=== PATIENT | female | born 1950 | race Caucasian/White ===

== ENCOUNTER 2017-02-13 10:30 | Outpatient (RCR) | payer BC | END 2017-02-27 10:33 | disposition home or self-care (01) | LOC: WSPT 10:30 | DX: M47.816 Spondylosis without myelopathy or radiculopathy, lumbar region (principal) ==

== ENCOUNTER → 2017-07-23 | Outpatient (CLI) | payer BC | LOC: MC.RAD 08:55 | DX: Z12.31 Encounter for screening mammogram for malignant neoplasm of breast (principal) ==

== ENCOUNTER → 2018-07-03 | Outpatient (CLI) | payer BC ==
[2018-07-03 15:03] LABS: PH 6 (5-8); SQUAMOUS EPITHELIAL None Seen /hpf; URINE APPEARANCE Cloudy; URINE BACTERIA Rare /hpf; URINE BILIRUBIN Negative (NEGATIVE); URINE BLOOD 1+ (NEGATIVE); URINE COLOR Yellow; URINE GLUCOSE Negative (NEGATIVE); URINE KETONE Negative (NEGATIVE); URINE LEUKOCYTE ESTERASE 3+ (NEGATIVE); URINE NITRATE Negative (NEGATIVE); URINE PROTEIN(semi-quant) Negative (NEGATIVE); URINE RBC 20-50 /hpf; URINE UROBILINOGEN Negative (NEGATIVE)
[2018-07-03 15:10] LABS: COLLECTION METHOD CLEAN CATCH
== END ==
LOC: ZCOL.LAB 14:24
PROVIDERS: Internal Medicine
DX: R30.0 Dysuria (principal)

== ENCOUNTER → 2018-08-06 | Outpatient (CLI) | payer BC | LOC: MC.RAD 10:35 | DX: Z12.31 Encounter for screening mammogram for malignant neoplasm of breast (principal) ==

== ENCOUNTER → 2019-08-09 | Outpatient (CLI) | payer BC | LOC: MC.RAD 11:21 | DX: Z12.31 Encounter for screening mammogram for malignant neoplasm of breast (principal) ==

== ENCOUNTER → 2020-05-28 | Outpatient (CLI) | payer MEDICARE, BC | LOC: COL.VAS 11:38 | DX: M79.662 Pain in left lower leg (principal); Z96.652 Presence of left artificial knee joint ==

== ENCOUNTER → 2020-08-10 | Outpatient (CLI) | payer MEDICARE, BC | LOC: MC.RAD 09:28 | DX: Z12.31 Encounter for screening mammogram for malignant neoplasm of breast (principal) ==

== ENCOUNTER → 2021-09-17 | Outpatient (CLI) | payer MEDICARE, BC | LOC: MC.RAD 12:58 | DX: Z12.31 Encounter for screening mammogram for malignant neoplasm of breast (principal) ==

== ENCOUNTER 2022-05-19 10:12 | Outpatient (RCR) | payer MEDICARE, BC ==
[~2022-05-19] VITALS: Ht 171.5 cm; Wt 100.0 kg
[2022-05-19 11:20] VITALS: BP 113/69; PULSE 69; TEMP 98.9
== END 2022-06-15 ==
LOC: COL.ER
DX: Z02.89 Encounter for other administrative examinations (principal)
CPT/HCPCS: Q0222

== ENCOUNTER → 2022-09-18 | Outpatient (CLI) | payer MEDICARE, BC | LOC: MC.RAD 14:17 | DX: Z12.31 Encounter for screening mammogram for malignant neoplasm of breast (principal) ==